=== PATIENT | female | born 1995 | race Hispanic/Latino ===

== ENCOUNTER 2020-01-15 16:19 | Emergency (ER) | payer OTHER ==
[~2020-01-15] VITALS: Ht 154.9 cm; Wt 81.2 kg
[~2020-01-15 16:19] MED LIST: FLUCONAZOLE100 MG PO; GABLOFEN10000 MCG/ IT
[2020-01-15] MEDS ORDERED: VALTREX1000 MG PO (17:37)
[2020-01-15] MEDS ORDERED: PREDNISONE20 MG PO (17:37)
--- NOTE | 2020-01-16 13:59 | EKG ---
[facility] [address] [place], [place] [address] Signed Normal sinus rhythm Normal ECG When compared with ECG of 15-JAN-2020 16:19, (Unconfirmed) Sinus rhythm has replaced Electronic ventricular pacemaker Confirmed by LOIS LAI DO ([id number]) on 01/16/2020 1:59:31 PM Electronically Signed By: LOIS LAI DO 01/16/20 1359 PATIENT NAME: AZIZA JACKSON Electrocardiogram DATE OF : [birth year] PHYSICIAN: LOIS LAI DO REPORT #: [id number] REPORT IS CONFIDENTIAL AND NOT TO BE RELEASED WITHOUT AUTHORIZATION
== END 2020-01-15 17:52 | disposition home or self-care (01) ==
LOC: ED 16:19
DX: G51.0 Bell's palsy (principal)
CPT/HCPCS: 70450; 70496; 70498; 71045; 80053; 84484; 85025; 85610; 85730; 93005; 93010; 99284-25; Q9967